=== PATIENT | female | born 1965 | race Caucasian/White ===

== ENCOUNTER 2017-05-31 12:59 | Outpatient (CLI) | payer BC ==
--- NOTE | 2017-05-31 14:41 | MMO ---
BILATERAL DIGITAL SCREENING MAMMOGRAMS: Date: 05/31/17 HISTORY: 52-year-old female presents for digital screening mammogram. COMPARISON: 05/07/16, 04/29/15, 04/28/14, 02/13/13, 03/30/11. FINDINGS: This patient's mammogram was interpreted with the assistance of computer-aided detection. The breasts are heterogeneously dense, which can lower the sensitivity of mammography. Scattered areas of fibroglandular density are noted bilaterally. No direct or indirect evidence of ma lignancy. Appearance is stable. IMPRESSION: BIRADS 2: Benign Finding(s) Continue routine screening. POS: [facility]
== END 2017-05-31 13:00 | disposition home or self-care (01) ==
LOC: SCSMAMMO 12:59
PROVIDERS: ATTEND Obstetrics & Gynecology
DX: Z12.31 Encounter for screening mammogram for malignant neoplasm of breast (principal)
CPT/HCPCS: 77067; G0202

== ENCOUNTER 2018-06-08 12:07 | Outpatient (CLI) | payer OTHER | END 2018-06-08 12:08 | disposition home or self-care (01) | LOC: BICMAMMO 12:07 | PROVIDERS: ATTEND Obstetrics & Gynecology | DX: Z12.31 Encounter for screening mammogram for malignant neoplasm of breast (principal) | CPT/HCPCS: 77063; 77067 ==